=== PATIENT | male | born 1955 | race Caucasian/White ===

== ENCOUNTER 2022-09-30 10:52 | Emergency (ER) | payer SELFPAY ==
[~2022-09-30] VITALS: Ht 167.6 cm; Wt 61.0 kg
[2022-09-30] MEDS ORDERED: KETOROLAC 60MG/2ML VIAL IM STA (11:11)
[2022-09-30] MEDS ORDERED: CYCL10TA21 MT (13:01)
[2022-09-30] MEDS ORDERED: IBUP-2029 MT (13:01)
[2022-09-30 13:20] VITALS: BP 144/79
== END 2022-09-30 13:22 | disposition home or self-care (01) ==
LOC: ER 10:52
DX: S09.90XA Unspecified injury of head, initial encounter (principal); V49.49XA Driver injured in collision with other motor vehicles in traffic accident, initial encounter; Y93.89 Activity, other specified; Y92.89 Other specified places as the place of occurrence of the external cause; Y99.8 Other external cause status; S20.219A Contusion of unspecified front wall of thorax, initial encounter
CPT/HCPCS: 70450; 71045; 72125; 93005; 96372; 99285; J1885